=== PATIENT | female | born 1985 | race Caucasian/White ===

== ENCOUNTER 2017-09-12 15:28 | Emergency (ER) | payer BC, OTHER ==
[2017-09-12] MEDS: EXPOSURE KIT-ADULT 7 DAY SUPPLY PO (19:00)
[2017-09-12 19:36] LABS: BASO # 0.1 10^3/uL (0.0-0.2); BASO % 0.5 % (0.0-1.0); EOS # 0.1 10^3/uL (0.0-0.50); EOS % 1.1 % (0.0-3.0); HEMATOCRIT 37.4 % (36.0-47.0); HEMOGLOBIN 12.5 g/dl (12.0-15.5); IMMATURE GRANULOCYTE % 0.1 % (0-3.0); LYMPH # 1.8 10^3/uL (1.5-4.5); MEAN CORPUSCULAR HEMOGLOBIN 29.1 pg (27.0-33.0); MEAN CORPUSCULAR HGB CONC 33.4 g/dl (32.0-36.5); MONO # 0.4 10^3/uL (0.0-0.8); MONO % 4.1 % (0.0-5.0); NEUTROPHILS # 6.8 10^3/uL (1.8-7.7); NEUTROPHILS % 74.2 % (36.0-66.0); PLATELET COUNT, AUTOMATED 267 10^3/uL (150-450); RED CELL DISTRIBUTION WIDTH 12.9 % (11.5-14.5); WHITE BLOOD COUNT 9.1 10^3/uL (4.0-10.0)
[2017-09-12] MEDS: cefTRIAXone SOD 250 MG VIAL (J0696) IM (19:48)
[2017-09-12] MEDS: ONDANSETRON 4 MG ORAL DISINTEGRATING TAB (Q0162 PER 1MG) PO ×2 (19:48→20:30)
[2017-09-12] MEDS: metroNIDAZOLE (FLAGYL) 500 MG TAB PO (19:50)
[2017-09-12] MEDS: AZITHROMYCIN 250 MG TAB PO (19:51)
[2017-09-12] MEDS: IBUPROFEN 800 MG TAB PO (19:51)
[2017-09-12 19:54] LABS: CONTROL LINE HCG INT CTR LINE PRESENT; HCG, SERUM QUALITATIVE NEGATIVE (NEGATIVE)
[2017-09-12 19:57] LABS: ALKALINE PHOSPHATASE 95 U/L (45-117); ALT/SGPT 17 U/L (12-78); ANION GAP 9 MEQ/L (8-16); AST/SGOT 14 U/L (7-37); BILIRUBIN,TOTAL 0.3 MG/DL (0.2-1.0); BLOOD UREA NITROGEN 11 MG/DL (7-18); CALCIUM LEVEL 8.8 MG/DL (8.5-10.1); CARBON DIOXIDE LEVEL 26 MEQ/L (21-32); CHLORIDE LEVEL 106 MEQ/L (98-107); GLOMERULAR FILTRATION RATE > 60.0 (>60); GLUCOSE, FASTING 94 MG/DL (70-100); POTASSIUM SERUM 3.6 MEQ/L (3.5-5.1); SODIUM LEVEL 141 MEQ/L (136-145)
[2017-09-12 22:10] LABS: HIV SCREEN CENTAUR EXPOSED NEGATIVE (NEGATIVE)
[2017-09-13 00:39] LABS: CHLAMYDIA DNA AMPLIFICATION NEGATIVE (NEGATIVE); GC DNA AMPLIFICATION NEGATIVE (NEGATIVE)
[2017-09-14 09:59] LABS: HEPATITIS B SURFACE ANTIBODY POSITIVE (POSITIVE)
[2017-09-14 10:09] LABS: HEPATITIS B SURFACE ANTIGEN NEGATIVE (NEGATIVE)
== END 2017-09-12 20:45 | disposition home or self-care (01) ==
LOC: M ED 15:28
DX: Z20.2 Contact with and (suspected) exposure to infections with a predominantly sexual mode of transmission (principal); I10 Essential (primary) hypertension; F41.9 Anxiety disorder, unspecified; Z79.899 Other long term (current) drug therapy
CPT/HCPCS: J0696

== ENCOUNTER → 2018-04-11 | Outpatient (REF) | payer OTHER ==
[2018-04-11 11:32] LABS: ALBUMIN 3.9 GM/DL (3.2-5.2); ALBUMIN/GLOBULIN RATIO 1.18 (1.00-1.93); ALKALINE PHOSPHATASE 98 U/L (45-117); ALT/SGPT 16 U/L (12-78); ANION GAP 6 MEQ/L (8-16); AST/SGOT 8 U/L (7-37); BILIRUBIN,TOTAL 0.3 MG/DL (0.2-1.0); BLOOD UREA NITROGEN 10 MG/DL (7-18); CALCIUM LEVEL 9.2 MG/DL (8.5-10.1); CARBON DIOXIDE LEVEL 29 MEQ/L (21-32); CHLORIDE LEVEL 105 MEQ/L (98-107); CHOLESTEROL LEVEL 147 MG/DL (<200); CHOLESTEROL RISK RATIO 3.062 (<5); FREE T4 1.03 NG/DL (0.76-1.46); GLOMERULAR FILTRATION RATE > 60.0 (>60); GLUCOSE, FASTING 81 MG/DL (70-100); HDL CHOLESTEROL 48 MG/DL (>40); LDL CHOLESTEROL 82 MG/DL (<100); NON-HDL-C 99 MG/DL; POTASSIUM SERUM 4.2 MEQ/L (3.5-5.1); SODIUM LEVEL 140 MEQ/L (136-145); TOTAL PROTEIN 7.2 GM/DL (6.4-8.2); TRIGLYCERIDES LEVEL 83 MG/DL (<150)
[2018-04-11 11:33] LABS: TOTAL 25(OH) VITAMIN D 78.8 NG/ML (30.0-100.0)
[2018-04-11 11:34] LABS: PTH INTACT 28.5 PG/ML (18.5-88.0)
== END ==
LOC: M SFHCPLAZ 08:43
DX: I10 Essential (primary) hypertension (principal); E55.9 Vitamin D deficiency, unspecified
CPT/HCPCS: 84443

== ENCOUNTER 2024-08-03 09:29 | Emergency (ER) | payer OTHER ==
[~2024-08-03] VITALS: Ht 162.6 cm; Wt 122.9 kg
[~2024-08-03 09:29] MED LIST: BUPR-71 PO; EMTR1TAB16 PO; FLUO-365 PO; LABE20TAB PO; MOTR200T44 PO; RALT40TA PO; ZOFR4TAB14 PO
[2024-08-03 09:36] VITALS: BP 144/71; TEMP 99.2; O2SAT 96
[2024-08-03] MEDS ORDERED: ZOLP10TA2 (09:46)
[2024-08-03] MEDS ORDERED: FLUO40CA (09:46)
== END 2024-08-03 12:34 | disposition home or self-care (01) ==
LOC: M ED 09:29
DX: F32.A Depression, unspecified (principal); Z79.899 Other long term (current) drug therapy

== ENCOUNTER 2024-08-12 22:07 | Inpatient (IN) | payer OTHER ==
[~2024-08-12] VITALS: Ht 165.1 cm; Wt 128.2 kg
[~2024-08-12 22:07] MED LIST changes: +FLUO40CA PO; +ZOLP10TA2
[2024-08-12 22:49] LABS: HEMATOCRIT 38.7 % (36.0-47.0); HEMOGLOBIN 12.8 g/dl (12.0-15.5); MEAN CORPUSCULAR HEMOGLOBIN 29.8 pg (27.0-33.0); MEAN CORPUSCULAR HGB CONC 33.1 g/dl (32.0-36.5); MEAN CORPUSCULAR VOLUME 90.2 fl (80.0-96.0); PLATELET COUNT, AUTOMATED 251 10^3/uL (150-450); RED BLOOD COUNT 4.29 10^6/uL (4.00-5.40); WHITE BLOOD COUNT 8.8 10^3/uL (4.0-10.0)
[2024-08-12 23:16] LABS: AMPHETAMINES LEVEL URINE NEGATIVE (NEGATIVE); BARBITURATES URINE NEGATIVE (NEGATIVE); BENZODIAZEPINES URINE NEGATIVE (NEGATIVE); COCAINE METABOLITE URINE NEGATIVE (NEGATIVE); METHADONE URINE NEGATIVE (NEGATIVE); OPIATES URINE NEGATIVE (NEGATIVE); PHENCYCLIDINE URINE NEGATIVE (NEGATIVE)
[2024-08-12 23:17] LABS: CANNABINOIDS URINE NEGATIVE (NEGATIVE)
[2024-08-12 23:20] LABS: ALBUMIN 3.7 G/DL (3.2-5.2); ALKALINE PHOSPHATASE 100 U/L (35-104); ALT/SGPT 108 U/L (7.0-40); AST/SGOT 76 U/L (<34); BILIRUBIN,DIRECT 0.1 MG/DL (<0.4); BILIRUBIN,TOTAL 0.3 MG/DL (0.3-1.2); BLOOD UREA NITROGEN 8 MG/DL (9-23); CALCIUM LEVEL 8.4 MG/DL (8.5-10.1); CARBON DIOXIDE LEVEL 25 MMOL/L (20-31); CHLORIDE LEVEL 108 MMOL/L (98-107); CREATININE FOR GFR 0.74 MG/DL (0.55-1.30); GLOMERULAR FILTRATION RATE > 60.0 (>58); GLUCOSE, FASTING 84 MG/DL (60-100); POTASSIUM SERUM 3.9 MMOL/L (3.5-5.1); SALICYLATE LEVEL < 3.0 MG/DL (<30); SODIUM LEVEL 145 MMOL/L (136-145); TOTAL PROTEIN 7.3 G/DL (5.7-8.2)
[2024-08-12 23:22] LABS: THYROID STIMULATING HORMONE 2.249 uIU/ML (0.55-4.78)
[2024-08-12 23:45] LABS: ETHYL ALCOHOL (ETHANOL) 0.415 % (0.000-0.010)
[2024-08-13] MEDS ORDERED: buPROPion 75 MG TAB PO SCH (09:00)
[2024-08-13] MEDS ORDERED: TRAZ-252 PO (09:11)
[2024-08-13] MEDS ORDERED: HOME MED LIST COMPLETE! XX SCH (09:15)
[2024-08-13] MEDS: THIAMINE 100 MG TAB PO SCH ×2 (09:27→22:28)
[2024-08-13] MEDS: MULTIVITAMINS/MINERALS THERAP 1 TAB PO SCH (09:27)
[2024-08-13] MEDS: FLUoxetine 20MG CAP PO SCH (09:27)
[2024-08-13] MEDS: FOLIC ACID 1MG TAB PO SCH (09:27)
[2024-08-13] MEDS: buPROPion **SR TABLET** (ZYBAN) 150MG PO SCH (11:09)
[2024-08-13] MEDS: LORazepam 2 MG TAB PO PRN ×2 (11:16→16:16)
[2024-08-13] MEDS ORDERED: diphenhydrAMINE 25MG CAP PO PRN (15:30)
[2024-08-13] MEDS ORDERED: MAALOX 30 ML SUSP *UDC PO PRN (15:30)
[2024-08-13] MEDS ORDERED: OLANZapine 5 MG TAB PO PRN (15:30)
[2024-08-13] MEDS ORDERED: MOM 30ML SUSPENSION UDC PO PRN (15:30)
[2024-08-13 20:59] VITALS: BP 160/96; TEMP 97; O2SAT 97
[2024-08-13 22:48] VITALS: BP 160/96
[2024-08-13] MEDS: traZODone 50 MG TAB PO PRN (22:54)
[2024-08-14 06:45] VITALS: BP 138/68; TEMP 97; O2SAT 96
[2024-08-14] MEDS: ACETAMINOPHEN 325 MG TAB PO PRN ×2 (06:50→20:54)
[2024-08-14] MEDS: FLUoxetine 20MG CAP PO SCH (08:45)
[2024-08-14] MEDS: MULTIVITAMINS/MINERALS THERAP 1 TAB PO SCH (08:45)
[2024-08-14] MEDS: FOLIC ACID 1MG TAB PO SCH (08:45)
[2024-08-14] MEDS: NICOTINE 14 MG/24 HR TRANSDERMAL TD SCH (08:46)
[2024-08-14] MEDS: LORazepam 1 MG TAB PO PRN (10:40)
[2024-08-14] MEDS: busPIRone 10 MG TAB PO SCH (12:14)
[2024-08-14] MEDS ORDERED: ISOVUE-370 76% 100ML VIAL As Ordered ONE (14:45)
[2024-08-14 15:00] VITALS: BP 134/88; TEMP 97.4; O2SAT 100
[2024-08-14 15:23] LABS: INR 0.98; PROTHROMBIN TIME 13.3 SECONDS (12.5-14.5)
[2024-08-14 15:42] LABS: ALBUMIN 3.6 G/DL (3.2-5.2); BILIRUBIN,DIRECT 0.2 MG/DL (<0.4); BILIRUBIN,TOTAL 0.4 MG/DL (0.3-1.2); TOTAL PROTEIN 7.4 G/DL (5.7-8.2)
[2024-08-14 15:57] LABS: HEPATITIS B SURFACE ANTIGEN NEGATIVE (NEGATIVE)
[2024-08-14 16:18] LABS: HEPATITIS B CORE ANTIBODY IGM NEGATIVE (NEGATIVE); HEPATITIS C VIRUS ABY INDEX 0.03 INDEX (<0.8)
[2024-08-14 20:52] VITALS: BP 137/93; TEMP 97.2; O2SAT 97
[2024-08-15 06:33] VITALS: BP 144/76; TEMP 97.1; O2SAT 97
[2024-08-15 15:11] VITALS: BP 149/97; TEMP 97.1; O2SAT 98
[2024-08-15 20:00] VITALS: BP 142/68
[2024-08-16 06:30] VITALS: BP 128/67; TEMP 96.9; O2SAT 96
[2024-08-16 06:33] VITALS: BP 128/67
[2024-08-16] MEDS: PANTOPRAZOLE 40MG TAB (PROTONIX) PO SCH (13:49)
[2024-08-16] MEDS: IBUPROFEN 600MG TAB PO PRN (13:50)
[2024-08-16 15:24] VITALS: BP 128/67
[2024-08-16 15:55] VITALS: BP 143/85; TEMP 97; O2SAT 97
[2024-08-17 06:39] VITALS: BP 136/64; TEMP 97.1; O2SAT 97
[2024-08-17 06:48] VITALS: BP 136/64
[2024-08-17 14:48] VITALS: BP 136/96
[2024-08-17 16:17] VITALS: BP 136/86; TEMP 97.9; O2SAT 97
[2024-08-17] MEDS: IBUPROFEN 600MG TAB PO PRN (18:45)
[2024-08-18 06:56] VITALS: BP 140/70; TEMP 97.9; O2SAT 97
[2024-08-18 15:48] VITALS: BP 146/92; TEMP 98.4; O2SAT 97
[2024-08-19 07:08] VITALS: BP 126/59; TEMP 97.5; O2SAT 95
[2024-08-19 15:14] VITALS: BP 148/85; TEMP 97.8; O2SAT 99
[2024-08-20] MEDS ORDERED: HYDR-3363 PO (04:07)
[2024-08-20] MEDS ORDERED: TRAZ-252 PO (04:07)
[2024-08-20] MEDS ORDERED: FLUO40CA PO (04:07)
[2024-08-20] MEDS ORDERED: BUSP10TA PO (04:07)
[2024-08-20] MEDS ORDERED: PANT40TA29 PO (04:07)
[2024-08-20 06:38] VITALS: BP 126/60; TEMP 97.1; O2SAT 97
== END 2024-08-20 16:38 | disposition home or self-care (01) | DRG 751 ==
LOC: M ED 22:07 → M ED INP 08-13 15:30 → M PSY 08-13 20:22
PROVIDERS: ADMIT Internal Medicine; ATTEND Psychiatry & Neurology Psychiatry
DX: F33.1 Major depressive disorder, recurrent, moderate (principal); R16.0 Hepatomegaly, not elsewhere classified; K76.0 Fatty (change of) liver, not elsewhere classified; F41.1 Generalized anxiety disorder; F10.229 Alcohol dependence with intoxication, unspecified; Z79.899 Other long term (current) drug therapy; I10 Essential (primary) hypertension; E66.9 Obesity, unspecified; R74.01 Elevation of levels of liver transaminase levels; R10.11 Right upper quadrant pain; F10.239 Alcohol dependence with withdrawal, unspecified

== ENCOUNTER → 2024-08-23 | Outpatient (CLI) | payer OTHER ==
[~2024-08-23] MED LIST changes: +BUSP10TA PO; +HYDR-3363 PO; +PANT40TA29 PO; +TRAZ-252 PO
== END ==
LOC: M OUTALCOH 10:00
PROVIDERS: ATTEND Psychiatry & Neurology Psychiatry
DX: F10.20 Alcohol dependence, uncomplicated (principal)

== ENCOUNTER → 2024-09-12 | Outpatient (RCR) | payer OTHER | LOC: M OUTALCOH 08-31 08:54 | PROVIDERS: ATTEND Psychiatry & Neurology Psychiatry | DX: F10.20 Alcohol dependence, uncomplicated (principal) ==

== ENCOUNTER → 2025-02-28 | Outpatient (CLI) | payer OTHER ==
[~2025-02-28] MED LIST changes: +MULTTAB61 PO; +NALT50TA4 PO; +TRAZ-186 PO; +ZOLP10TA11; -ZOLP10TA2
[2025-02-28 14:57] LABS: BASO # 0.0 10^3/uL (0.0-0.2); BASO % 0.5 % (0.0-1.0); EOS # 0.2 10^3/uL (0.0-0.5); EOS % 2.1 % (0.0-3.0); LYMPH # 1.7 10^3/uL (1.5-5.0); LYMPH % 22.2 % (24.0-44.0); MONO # 0.3 10^3/uL (0.0-0.8); MONO % 4.5 % (2.0-8.0); NEUTROPHILS # 5.3 10^3/uL (1.5-8.5); NEUTROPHILS % 70.4 % (36.0-66.0); PLATELET COUNT, AUTOMATED 243 10^3/uL (150-450)
[2025-02-28 15:05] LABS: ALT/SGPT 13 U/L (7.0-40); AST/SGOT 12 U/L (<34); CALCIUM LEVEL 9.1 MG/DL (8.5-10.1); CARBON DIOXIDE LEVEL 26 MMOL/L (20-31); CHLORIDE LEVEL 107 MMOL/L (98-107); CHOLESTEROL LEVEL 171 MG/DL (<200); CHOLESTEROL RISK RATIO 3.52 (<5); CREATININE FOR GFR 0.82 MG/DL (0.55-1.30); ESTIMATED AVERAGE GLUCOSE 100.0 MG/DL (60-110); GLOMERULAR FILTRATION RATE > 90.0 (>58); LDL CHOLESTEROL 99.3 MG/DL (<100); NON-HDL-C 122.5 MG/DL; POTASSIUM SERUM 4.1 MMOL/L (3.5-5.1); SODIUM LEVEL 142 MMOL/L (136-145); TRIGLYCERIDES LEVEL 116 MG/DL (<150)
[2025-02-28 15:09] LABS: TOTAL 25(OH) VITAMIN D 53.9 NG/ML (20.0-100.0)
[2025-03-04 11:48] LABS: INSULIN LEVEL 9.9 uIU/mL (<=18.4)
== END ==
LOC: M PLALAB 08:33
PROVIDERS: ATTEND Family Medicine
DX: R73.01 Impaired fasting glucose (principal); I10 Essential (primary) hypertension; E55.9 Vitamin D deficiency, unspecified; K74.00 Hepatic fibrosis, unspecified